=== PATIENT | female | born 1950 | race Two or more races ===

== ENCOUNTER 2016-09-23 21:35 | Emergency (ER) | payer OTHER ==
[~2016-09-23] VITALS: Ht 157.5 cm; Wt 65.8 kg
[2016-09-23 22:01] VITALS: BP 142/80
== END 2016-09-24 00:47 | disposition left against medical advice (07) ==
LOC: ER 21:39
DX: R05 Cough (principal); R07.0 Pain in throat; Z53.21 Procedure and treatment not carried out due to patient leaving prior to being seen by health care provider